=== PATIENT | male | born 1960 | race Caucasian/White ===

== ENCOUNTER 2021-03-23 00:51 | Emergency (ER) | payer BC, OTHER ==
[~2021-03-23] VITALS: Ht 185.4 cm; Wt 102.1 kg
[2021-03-23 05:30] VITALS: BP 137/100
== END 2021-03-23 07:47 | disposition home or self-care (01) ==
LOC: ER 01:00
DX: K40.20 Bilateral inguinal hernia, without obstruction or gangrene, not specified as recurrent (principal); E11.9 Type 2 diabetes mellitus without complications; I10 Essential (primary) hypertension
CPT/HCPCS: 76870